=== PATIENT | female | born 1950 | race Caucasian/White ===

== ENCOUNTER 2023-05-13 07:12 | Day surgery (SDC) | payer MEDICARE, OTHER ==
[~2023-05-13] VITALS: Ht 165.1 cm; Wt 63.6 kg
--- NOTE | ~2023-05-13 | OR ---
[facility] [address], [place] [address] Draft DATE OF OPERATION: 05/13/2023 SURGEON: Amanda Santos MD PREOPERATIVE DIAGNOSIS: Colon screening. POSTOPERATIVE DIAGNOSES: 1. Sigmoid diverticulosis. 2. Small polyp left colon (excised). 3. Mild inflammation, cecum. PROCEDURE: Total colonoscopy to cecum with cold morcellation polypectomy x1 and biopsy of cecum and rectum. ANESTHESIA: Intravenous sedation; fentanyl 150 mcg and Versed 5 mg. INDICATION: This 72-year-old white woman is a patient of Dr. Lydia Mosquera. She is here for screening colonoscopy. She last underwent colonoscopy in 2018. Biopsy at that time showed mild mucosal edema of the cecum and mild chronic proctitis. She has no family history of colon cancer. She has been having some loose bowel movements for quite some time. A probiotic supplement helps with resolution of the symptoms largely. She is now here for colonoscopy for screening. She understands the risk of bleeding, infection, and perforation. FINDINGS: The prep was excellent. Complete colonoscopy was undertaken to the cecum without question. She did have mild inflammation of the cecum and biopsies were obtained. There was mild loss of vascular clarity of the rectum suggestive of edema. The rectum was biopsied as well. There were few diverticula and one small polyp of the left colon. DESCRIPTION OF PROCEDURE: The patient was brought to the endoscopy suite and placed in the lateral decubitus position, given intravenous sedation to the point of slurred speech and nystagmus. Digital rectal examination was normal. An Olympus video colonoscope was passed in the rectum and manipulated throughout the PATIENT NAME: LAW PALMER JANUARY OPERATIVE REPORT DATE OF : 48 REPORT #: [id number] PHYSICIAN: AMANDA SANTOS MD PCP: LYDIA MOSQUERA MD REPORT IS CONFIDENTIAL AND NOT TO BE RELEASED WITHOUT AUTHORIZATION [facility] [address], [place] [address] Draft colon ultimately intubating the cecum. The ileocecal valve and appendiceal orifice were noted to be normal. There was mild inflammatory change but not much and certainly not severe. There was no sign of malignancy. Biopsies were obtained. The scope was withdrawn and the remaining colon was examined thoroughly. At about 40 cm from the anal verge, there was a small polyp, which was excised with cold morcellation technique. A few scattered diverticula were noted as well. Further withdrawal allowed for retroflexed view of the rectum. There was mild edema of the rectum and biopsies were obtained. The scope was straightened, withdrawn and removed. The patient was taken to the recovery room in good condition. CONCLUDING DIAGNOSES: Small polyp, diverticulosis, mild edema of rectum and inflammation of cecum. PLAN: Recommend repeat colonoscopy in 5 years, sooner if clinically indicated. We will review her pathology report. there is lymphocytic colitis or other similar finding. MD TEODORO Page/SEBLE /[id number] cc: Lydia Mosquera MD Copies: LYDIA MOSQUERA MD ~ PATIENT NAME: LAW PALMER JANUARY OPERATIVE REPORT DATE OF : 48 REPORT #: [id number] PHYSICIAN: AMANDA SANTOS MD PCP: LYDIA MOSQUERA MD REPORT IS CONFIDENTIAL AND NOT TO BE RELEASED WITHOUT AUTHORIZATION
[~2023-05-13 07:12] MED LIST: ESTRADIOL0.5 MG PO; LOVASTATIN20 MG PO; MULTIPLE VITAM1 EAC2 PO; PROGESTERONE100 MG PO
[2023-05-13 07:32] VITALS: BP 150/76
[2023-05-13] MEDS ORDERED: VITAMIN C100 MG PO (07:35)
[2023-05-13] MEDS ORDERED: VITAMIN D21250 MCG PO (07:36)
[2023-05-13] MEDS ORDERED: VITAMIN E45 M1 PO (07:36)
--- NOTE | 2023-05-13 09:07 | NUR ---
05/13/23 0907 [address] Briones 0850-PT TO PACU IN LL POSITION. EYES CLOSED. PT RESPONDS TO VERBAL AND TACTILE STIMULI. BREATHING EASY AND UNLABORED. SPO2 >95% ON 2L O2 VIA NC. PT ENCOURAGED TO PASS GAS. PT DENIES PAIN AND NAUSEA. 0858-PT RESTING COMFORTABLY AND PASSING GAS. BREATHING EASY AND UNLABORED. SP02 >95% ON 3 L O2 VIA NC. 0906-PT ENCOURAGED TO TAKE DEEP BREATHS RETURN DEMONSTRATION OBSERVED. SPO2 >95% ON 3 L O2 VIA NC. O2 TITRATED DOWN TO ROOM AIR.
[2023-05-13 09:49] VITALS: BP 128/76
--- NOTE | 2023-05-13 12:57 | NUR ---
PT IN BED AND IN GENERALLY GOOD SPIRITS. EXERCISED MINISTRY OF PRESENCE THEN PRAYED WITH PATIENT.
--- NOTE | 2023-05-15 15:59 | PATH ---
[facility] [address] [place], [place] [address] Signed SPECIMEN(S): A CECUM BIOPSY SPECIMEN(S): B COLON POLYP AT 40 CM SPECIMEN(S): C RECTUM BIOPSY SPECIMEN SOURCE: A. CECUM BIOPSY B. COLON POLYP AT 40 CM C. RECTUM BIOPSY CLINICAL HISTORY: Pre-op: 2018 edema cecum and mild proctitis. Post-op: Diverticulosis, polyp x1, mild cecitis. FINAL PATHOLOGIC DIAGNOSIS: A. Cecum biopsy: - Colonic mucosa with no significant pathologic abnormalities. - Negative for chronic active inflammation or features of microscopic colitis. - Negative for dysplasia. B. Colon polyp at 40 cm: - Suggestive of hyperplastic polyp. - Negative for dysplasia. C. Rectum biopsy: - Colonic mucosa with no significant pathologic abnormalities. - Negative for inflammation or dysplasia. NA:emh:C2NR MICROSCOPIC EXAMINATION: Histologic sections of all submitted blocks are examined by light microscopy. These findings, together with the gross examination, support the pathologic diagnosis. GROSS DESCRIPTION: A. The specimen, labeled and designated "Andrei, cecum biopsy," is received in formalin and consists of two alicia soft tissue fragments, ranging from 0.3 to 0.4 cm. Entirely submitted in (A1). B. The specimen, labeled and designated "Andrei, colon polyp at 40 cm," is received in formalin and consists of three alicia soft tissue fragments, ranging from 0.2 to 0.3 cm. Entirely submitted in (B1). C. The specimen, labeled and designated "Andrei, rectum biopsy," is received in formalin and consists of two alicia soft tissue fragments, ranging from 0.2 to PATIENT NAME: LAW PALMER JANUARY PATHOLOGY DATE OF : 48 REPORT #: [id number] PHYSICIAN: DAVID NEWTON PCP: LYDIA BARBOUR MD REPORT IS CONFIDENTIAL AND NOT TO BE RELEASED WITHOUT AUTHORIZATION [facility] [address] [place], [place] [address] Signed 0.3 cm. Entirely submitted in (C1). VB (under the direct supervision of a pathologist) The Gross Description was prepared using a voice recognition system. The report was reviewed for accuracy; however, sound-alike word errors, addition and/or deletions may occur. If there is any question about this report, please contact Client Services. PERFORMING LABORATORY: Technical component was performed by [facility], [address] [place] [address] (CLIA# [id number]). Professional interpretation was performed by [facility], [address] [place] [address] (CLIA# [id number]). Diagnostician: Elyse Todd MD Pathologist Electronically Signed 05/15/2023 Copies: ~ PATIENT NAME: LAW PALMER JANUARY PATHOLOGY DATE OF : 48 REPORT #: [id number] PHYSICIAN: [facility] PCP: LYDIA BARBOUR MD REPORT IS CONFIDENTIAL AND NOT TO BE RELEASED WITHOUT AUTHORIZATION
== END 2023-05-13 09:49 | disposition home or self-care (01) ==
LOC: DS 07:12 → OPS 07:12 → DS 08:30 → OPS 08:30
PROVIDERS: ATTEND Surgery
PROC: 0DBE8ZX Excision of Large Intestine, Via Natural or Artificial Opening Endoscopic, Diagnostic (ICD-10-PCS; 2023-05-13)
PROC: 0DBP8ZX Excision of Rectum, Via Natural or Artificial Opening Endoscopic, Diagnostic (ICD-10-PCS; 2023-05-13)
PROC: 0DBH8ZX Excision of Cecum, Via Natural or Artificial Opening Endoscopic, Diagnostic (ICD-10-PCS; principal; 2023-05-13 08:30)
DX: Z12.11 Encounter for screening for malignant neoplasm of colon (principal); K63.5 Polyp of colon; K57.30 Diverticulosis of large intestine without perforation or abscess without bleeding; E78.5 Hyperlipidemia, unspecified; Z80.0 Family history of malignant neoplasm of digestive organs; Z90.49 Acquired absence of other specified parts of digestive tract; Z88.8 Allergy status to other drugs, medicaments and biological substances; Z88.5 Allergy status to narcotic agent; Z88.2 Allergy status to sulfonamides
CPT/HCPCS: 88305; 99153; G0500; J2250; J3010; J7121